=== PATIENT | female | born 1995 | race Caucasian/White ===

== ENCOUNTER 2023-02-28 06:38 | Inpatient (IN) | payer BC ==
[2023-02-28] VITALS (66 sets, daily range): BP systolic 84–138; BP diastolic 50–89; PULSE 74–123; TEMP 97.9–98.3
[~2023-02-28] VITALS: Ht 170.2 cm; Wt 88.2 kg
[~2023-02-28 06:38] MED LIST: LORTAB 5/500 501 TAB PO
--- NOTE | 2023-02-28 06:55 | NUR ---
0699 PT TO UNIT WITH . PT CHANGED INTO GOWN AND COMFORTABLE IN BED, THIS RN DISCUSSED POC, PT COMFORTABLE. PT STATES NO LOF, CTX, AND POSITIVE MOVEMENT. CONTINUING WITH PLAN OF CARE.
[2023-02-28 07:43] LABS: BASO % 0.2 % (0.0-2.0); EOS # 0.2 K/mm3 (0.0-0.7); EOS % 1.7 % (0.0-4.0); GRAN % 73.2 % (42.2-75.2); HEMATOCRIT 38.5 % (37.0-47.0); HEMOGLOBIN 12.6 g/dl (12.5-16.0); LYMPH # 1.6 K/mm3 (1.2-3.4); LYMPH % 16.6 % (20.0-51.0); MEAN CELL VOLUME 86 fl (80.0-100.0); MEAN CORPUSCULAR HEMOGLOBIN 28 pg (27-31); MEAN CORPUSCULAR HGB CONC 33 g/dl (33.0-37.0); MEAN PLATELET VOLUME 10.5 fl (7.4-10.4); MONO # 0.7 K/mm3 (0.1-0.6); MONO % 7.8 % (1.7-9.3); PLATELET COUNT 269 K/mm3 (130-400); REDCELL DISTRIBUTION WIDTH-CV 13.2 % (11.5-14.5)
--- NOTE | 2023-02-28 08:05 | NUR ---
0805 DR. PARADA IN ROOM TO PLACE COOKS BALLOON. DR. PARADA EXPLAINS PROCEDURE TO PT. PT AGREE. PT CLOSED ON EXAM. 0810 DR. PARADA PLACED CATHETER INTO CERVIX. 20CC INFLATED IN UTERUS. PT COMFORTABLE, 20CC ADDED AGAIN TO UTERINE BALLOON, PT COMFORTABLE. 20CC ADDED TO VAGINAL BALLOON. PT COMFORTABLE. 20CC ADDED TO UTERINE BALLOON, PT COMFORTABLE, 20CC ADDED AGAIN TO UTERINE BALLOON FOR A TOTAL OF 80CC. PT COMFORTABLE. 20CC ADDED TO VAGINAL BALLOON, PT SLIGHTLY CRAMPY. 20CC ADDED AGAIN FOR A TOTAL OF 60CC. PT CRAMPY BUT NOT IN PAIN. PROCEDURE COMPLETE.
[2023-02-28] MEDS ORDERED: LEVOXYL0.05 MG PO (09:41)
[2023-02-28] MEDS ORDERED: PRENATAL TABLET PO (09:41)
[2023-02-28] MEDS ORDERED: OMEGA-3 1000 MG1 CAP PO (09:42)
--- NOTE | 2023-02-28 12:00 | NUR ---
1200 THIS RN IN ROOM TO REPOSITION PT. PT REQUESTED BIRTHING BALL. PT UP ON BIRTHING BALL AND CONTINUES TO HAVE LATE DECELERATIONS. 1214 PLACED PT IN KNEE CHEST POSITION. DIFFICULTY TRACING EFM DUE TO MATERNAL MOVEMENT AND POSITION. DECELERATIONS STILL NOTED. PITOCIN TURNED OFF. PT UNCOMFORTABLE IN KNEE CHEST SO MOVED TO LEFT SIDE. DECELERATIONS RESOLVED.
--- NOTE | 2023-02-28 12:34 | NUR ---
[address] PARADA. [place] FOR EPIDURAL NOW. 1238 CRISTINA GONCALVES, IN ROOM. PT SITTING UPRIGHT, BOLUS INFUSING PER PROTOCOL, PULSE OX IN PLACE. FHR TRACING CAT 1. 1242 SINGLE SHOT ADMINISTERED PER CRISTINA GONCALVES. PT TOLERATED WELL. 1248 PT RETURNED TO BACK, LL POSITION. COMFORTABLE IN BED. VS STABLE. EFM TRACING CAT 1.
--- NOTE | 2023-02-28 20:04 | NUR ---
This RN notes both variable decelerations and an early decleration during this tracing.
[2023-03-01] VITALS (10 sets, daily range): BP systolic 95–120; BP diastolic 52–68; PULSE 82–114; TEMP 97.6–98.3
--- NOTE | 2023-03-01 00:42 | NUR ---
Variable decelerations noted on this tracing as well as early decelerations.
[2023-03-01 06:39] LABS: HEMATOCRIT 28.2 % (37.0-47.0); HEMOGLOBIN 9.5 g/dl (12.5-16.0)
[2023-03-01] MEDS ORDERED: IBU800 M1 PO (10:31)
[2023-03-02 08:21] VITALS: BP 114/70; PULSE 90
== END 2023-03-02 15:30 | disposition home or self-care (01) | DRG 807 ==
LOC: LDR 06:38 → OB 22:47
PROVIDERS: ADMIT Obstetrics & Gynecology
PROC: 10E0XZZ Delivery of Products of Conception, External Approach (ICD-10-PCS; principal; 2023-02-28)
PROC: 0KQM0ZZ Repair Perineum Muscle, Open Approach (ICD-10-PCS; 2023-02-28)
PROC: 3E033VJ Introduction of Other Hormone into Peripheral Vein, Percutaneous Approach (ICD-10-PCS; 2023-02-28)
DX: O41.03X0 Oligohydramnios, third trimester, not applicable or unspecified (principal); Z37.0 Single live birth; O99.284 Endocrine, nutritional and metabolic diseases complicating childbirth; Z3A.39 39 weeks gestation of pregnancy; Z23 Encounter for immunization; Z79.890 Hormone replacement therapy; E06.3 Autoimmune thyroiditis; E03.9 Hypothyroidism, unspecified; O76 Abnormality in fetal heart rate and rhythm complicating labor and delivery; O70.1 Second degree perineal laceration during delivery
CPT/HCPCS: J2795; J3010; J7120

== ENCOUNTER → 2024-01-15 | Outpatient (CLI) | payer BC ==
[~2024-01-15] MED LIST changes: +IBU800 M1 PO; +LEVOXYL0.05 MG PO; +OMEGA-3 1000 MG1 CAP PO; +PRENATAL TABLET PO
== END ==
LOC: COL.RAD 07:10
DX: E01.1 Iodine-deficiency related multinodular (endemic) goiter (principal)